=== PATIENT | female | born 1945 | race Caucasian/White ===

== ENCOUNTER → 2019-12-16 | Outpatient (CLI) | payer MEDICARE ==
[2016-03-01 10:13] VITALS: BP 126/79
[~2019-12-16] MED LIST: BRAIN MIGHT-DH1 EACH PO; PRILOSEC20 M2 PO; VITAMIN D22000 IU PO; VIVELLE-DO0.1 MG/24; XARELTO10 MG PO
[2019-12-16 11:56] LABS: EOS # 0.1 (0.04-0.40); EOS % 0.9 % (1.0-5.0); HEMATOCRIT 46.5 % (37.0-47.0); HEMOGLOBIN 14.6 g/dL (12.5-16.0); MEAN CELL VOLUME 97 fl (78-100); MEAN CORPUSCULAR HEMOGLOBIN 31 pg (27-31); MEAN CORPUSCULAR HGB CONC 31 g/dL (33-37); MEAN PLATELET VOLUME 9.3 fl (7.4-10.4); MONO # 0.8 (0.20-0.80); NEU # 3.7 (1.40-6.50); PLATELET COUNT 392 K/mm3 (130-400); RED BLOOD COUNT 4.78 M/mm3 (4.10-5.30); WHITE BLOOD COUNT 7.5 K/mm3 (4.8-10.8)
[2019-12-16 12:09] LABS: ALBUMIN 4.1 g/dL (3.4-4.8)
[2019-12-16 12:10] LABS: POTASSIUM 4.1 mmol/L (3.5-5.1)
[2019-12-16 12:11] LABS: CALCIUM 9.8 mg/dL (8.3-10.5)
[2019-12-16 12:12] LABS: TOTAL PROTEIN 7.7 g/dL (6.2-8.1)
[2019-12-16 12:14] LABS: TOTAL BILIRUBIN 0.7 mg/dL (0.2-1.2)
[2019-12-16 13:01] LABS: ERYTHROCYTE SEDIMENTATION RATE 17 mm/hr (0-30)
[2019-12-18 11:55] LABS: ANA SCREEN with REFLEX Positive (Negative)
== END ==
LOC: RAD 11:37 → EDSTATUS 11:41
PROVIDERS: Internal Medicine
DX: M85.672 Other cyst of bone, left ankle and foot (principal); M77.32 Calcaneal spur, left foot; M19.041 Primary osteoarthritis, right hand; M19.042 Primary osteoarthritis, left hand; M85.841 Other specified disorders of bone density and structure, right hand; M85.842 Other specified disorders of bone density and structure, left hand; M65.872 Other synovitis and tenosynovitis, left ankle and foot; M65.871 Other synovitis and tenosynovitis, right ankle and foot; M65.842 Other synovitis and tenosynovitis, left hand; M65.841 Other synovitis and tenosynovitis, right hand

== ENCOUNTER → 2020-01-06 | Outpatient (CLI) | payer MEDICARE ==
[2016-03-01 10:13] VITALS: BP 126/79
== END ==
LOC: LAB 10:28
DX: M65.9 Synovitis and tenosynovitis, unspecified (principal)

== ENCOUNTER → 2020-08-10 | Outpatient (CLI) | payer MEDICARE ==
[2016-03-01 10:13] VITALS: BP 126/79
[2020-08-10 16:56] LABS: EOS # 0.1 (0.04-0.40); EOS % 2.3 % (1.0-5.0); HEMATOCRIT 42.7 % (37.0-47.0); HEMOGLOBIN 13.6 g/dL (12.5-16.0); LYMPH# 2.4 (1.50-4.00); MEAN CELL VOLUME 100 fl (78-100); MEAN CORPUSCULAR HEMOGLOBIN 32 pg (27-31); MEAN CORPUSCULAR HGB CONC 32 g/dL (33-37); MEAN PLATELET VOLUME 9.5 fl (7.4-10.4); MONO # 0.6 (0.20-0.80); NEU # 2.2 (1.40-6.50); PLATELET COUNT 328 K/mm3 (130-400); RED BLOOD COUNT 4.26 M/mm3 (4.10-5.30); WHITE BLOOD COUNT 5.3 K/mm3 (4.8-10.8)
[2020-08-10 16:59] LABS: POTASSIUM 4.4 mmol/L (3.5-5.1)
[2020-08-10 17:00] LABS: CALCIUM 9.9 mg/dL (8.3-10.5)
[2020-08-10 17:02] LABS: TOTAL PROTEIN 7.2 g/dL (6.2-8.1)
[2020-08-10 17:04] LABS: TOTAL BILIRUBIN 0.7 mg/dL (0.2-1.2)
[2020-08-10 17:49] LABS: ERYTHROCYTE SEDIMENTATION RATE 9 mm/hr (0-30)
== END ==
LOC: LAB 16:26
PROVIDERS: Internal Medicine
DX: E78.2 Mixed hyperlipidemia (principal); K90.9 Intestinal malabsorption, unspecified; M05.89 Other rheumatoid arthritis with rheumatoid factor of multiple sites

== ENCOUNTER → 2022-03-03 | Outpatient (CLI) | payer MEDICARE ==
[2022-03-03 13:50] LABS: BASO # 0.03 K/mm3 (0.02-0.10); EOS % 1.6 % (1.0-5.0); HEMATOCRIT 43.4 % (37.0-47.0); HEMOGLOBIN 13.7 g/dL (12.5-16.0); LYMPH# 2.35 K/mm3 (1.50-4.00); MEAN CELL VOLUME 103 fl (78-100); MEAN CORPUSCULAR HEMOGLOBIN 32 pg (27-31); MEAN CORPUSCULAR HGB CONC 32 g/dL (33-37); MEAN PLATELET VOLUME 9.1 fl (7.4-10.4); MONO # 0.74 K/mm3 (0.20-0.80); NEU # 3.13 K/mm3 (1.40-6.50); PLATELET COUNT 298 K/mm3 (130-400); RED BLOOD COUNT 4.23 M/mm3 (4.10-5.30); RED CELL DISTRIBUTION WIDTH 15.2 % (11.5-14.5); WHITE BLOOD COUNT 6.4 K/mm3 (4.8-10.8)
[2022-03-03 14:05] LABS: POTASSIUM 4.3 mmol/L (3.5-5.1); SODIUM 141 mmol/L (136-145)
[2022-03-03 14:06] LABS: CALCIUM 9.9 mg/dL (8.3-10.5)
[2022-03-03 14:08] LABS: GLUCOSE 89 mg/dL (65-105); TOTAL PROTEIN 7.1 g/dL (6.2-8.1)
[2022-03-03 14:09] LABS: CARBON DIOXIDE 24 mmol/L (23-31); TOTAL BILIRUBIN 0.9 mg/dL (0.2-1.2)
[2022-03-03 14:13] LABS: AST-SGOT 35 U/L (5-34)
[2022-03-03 14:14] LABS: ALT/SGPT 37 U/L (0-55)
[2022-03-03 15:23] LABS: ERYTHROCYTE SEDIMENTATION RATE 3 mm/hr (0-30)
== END ==
LOC: LAB 13:37
PROVIDERS: Internal Medicine
DX: Z12.11 Encounter for screening for malignant neoplasm of colon (principal); M05.89 Other rheumatoid arthritis with rheumatoid factor of multiple sites; K90.9 Intestinal malabsorption, unspecified; E78.2 Mixed hyperlipidemia

== ENCOUNTER → 2023-05-03 | Outpatient (CLI) | payer MEDICARE | LOC: RAD 10:33 | DX: G45.9 Transient cerebral ischemic attack, unspecified (principal) ==

== ENCOUNTER → 2023-05-09 | Outpatient (CLI) | payer MEDICARE | LOC: RAD 09:17 | DX: G45.9 Transient cerebral ischemic attack, unspecified (principal) | CPT/HCPCS: A9575 ==

== ENCOUNTER → 2023-11-21 | Outpatient (CLI) | payer MEDICARE | LOC: RAD 16:27 | DX: M25.562 Pain in left knee (principal) ==

== ENCOUNTER → 2024-03-22 | Outpatient (CLI) | payer MEDICARE ==
[2024-03-22 08:47] LABS: ALBUMIN 4.2 g/dL (3.4-4.8)
[2024-03-22 08:48] LABS: CALCIUM 10.6 mg/dL (8.3-10.5)
[2024-03-22 08:50] LABS: TOTAL PROTEIN 7.6 g/dL (6.2-8.1)
[2024-03-22 08:55] LABS: BASO # 0.03 K/mm3 (0.02-0.10); EOS # 0.13 K/mm3 (0.04-0.40); HEMATOCRIT 44.8 % (37.0-47.0); HEMOGLOBIN 14.5 g/dL (12.5-16.0); LYMPH# 1.85 K/mm3 (1.50-4.00); MEAN CELL VOLUME 101 fl (78-100); MEAN CORPUSCULAR HEMOGLOBIN 33 pg (27-31); MEAN CORPUSCULAR HGB CONC 32 g/dL (33-37); MEAN PLATELET VOLUME 9.5 fl (7.4-10.4); MONO # 0.72 K/mm3 (0.20-0.80); NEU # 3.79 K/mm3 (1.40-6.50); PLATELET COUNT 283 K/mm3 (130-400); RED BLOOD COUNT 4.45 M/mm3 (4.10-5.30); RED CELL DISTRIBUTION WIDTH 14.6 % (11.5-14.5); WHITE BLOOD COUNT 6.5 K/mm3 (4.8-10.8)
[2024-03-22 08:57] LABS: MAGNESIUM 1.98 mg/dL (1.60-2.60)
[2024-03-22 09:30] LABS: TOTAL BILIRUBIN 1.1 mg/dL (0.2-1.2)
== END ==
LOC: LAB 08:25
PROVIDERS: Internal Medicine
DX: Z12.11 Encounter for screening for malignant neoplasm of colon (principal); K90.9 Intestinal malabsorption, unspecified; M05.89 Other rheumatoid arthritis with rheumatoid factor of multiple sites; E78.2 Mixed hyperlipidemia